=== PATIENT | male | born 2000 | race African-American/Black ===

== ENCOUNTER 2020-03-16 04:09 | Inpatient (IN) | payer OTHER, SELFPAY ==
[2020-03-16 04:29] VITALS: BMI 20.7
[2020-03-16] MEDS ORDERED: Dextrose 5% in Water 1,000 ML IV PRN (04:34)
[2020-03-16] MEDS ORDERED: Morphine 2 MG/ML VIAL SLOW IVP PRN (04:34)
[2020-03-16] MEDS ORDERED: Morphine 4 MG/ML VIAL SLOW IVP PRN (04:34)
[2020-03-16] MEDS ORDERED: Dextrose 50% Abboject 50 ML SYRINGE SLOW IVP PRN (04:34)
[2020-03-16] MEDS: Potassium Chloride 20 MEQ in Premix Bag 1 BAG IVPB SCH ×2 (05:23→08:23)
[2020-03-16] MEDS: Sodium Chloride 0.9% 1,000 ML IV SCH ×2 (05:23→14:52)
[2020-03-16] MEDS ORDERED: FLU VACC QS2020-21(6MOS UP)/PF 60 MCG/0.5 ML SYRINGE IM ONE (06:45)
[2020-03-16] MEDS: Clindamycin/D5W 600 MG in Premix Bag 1 BAG IVPB SCH ×3 (07:27→21:45)
[2020-03-16] MEDS: Dexamethasone 4 mg/ml Vial SLOW IVP SCH ×3 (07:28→21:46)
[2020-03-16] MEDS: Ketorolac Tromethamine 30 MG/ML VIAL IVP SCH ×3 (07:28→17:59)
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
[2020-03-16] MEDS: Famotidine/PF 20 mg/2ml Vial SLOW IVP SCH ×2 (10:35→20:17)
[2020-03-16] MEDS: Chlorhexidine Gluconate 15 ML UDCUP SSP SCH ×3 (10:35→20:17)
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
[2020-03-17] MEDS: Sodium Chloride 0.9% 1,000 ML IV SCH ×2 (00:55→14:36)
[2020-03-17 04:47] LABS: #Lymphocytes 0.9 thou/uL (1.20-3.40); #Monocytes 0.3 thou/uL (0.11-0.59); #Neutrophils 3.8 thou/uL (1.40-6.50); %Basophils 0.4 % (0.0-1.0); %Eosinophils 0.1 % (0.0-10.0); %Lymphocytes 18.3 % (28.0-48.0); %Monocytes 5.5 % (0.0-4.0); %Neutrophils 75.7 % (31.0-61.0); Hemoglobin 13.4 g/dL (14.0-18.0); Mean Corpuscular HGB CONC 34.3 g/dL (32.0-36.0); Mean Corpuscular Hemoglobin 31.2 pg (25.0-35.0); Platelet Count 202 thou/uL (130-400); Red Blood Cell (RBC) Count 4.28 mill/uL (4.00-5.20)
[2020-03-17 05:13] LABS: Anion Gap 14 mmol/L (10-20); BUN (Urea Nitrogen) 16 mg/dL (8.9-20.6); Calc. Creatinine Clearance 128 mL/min (70-130); Calcium 8.6 mg/dL (7.8-10.44); Carbon Dioxide 23 mmol/L (22-29); Chloride 105 mmol/L (98-107); Estimated GFR-MDRD Greater than 90; Glucose 119 mg/dL (70-105); Phosphorus 3.9 mg/dL (2.3-4.7); Potassium 4.4 mmol/L (3.5-5.1); Sodium 138 mmol/L (136-145)
[2020-03-17] MEDS: Clindamycin/D5W 600 MG in Premix Bag 1 BAG IVPB SCH ×3 (05:28→21:04)
[2020-03-17] MEDS ORDERED: Chlorhexidine Gluconate 15 ML UDCUP SSP ONE (07:39)
[2020-03-17] MEDS ORDERED: Lidocaine 1% w/Epinephrine 1:100K 20 ML VIAL ONE (07:39)
[2020-03-17] MEDS ORDERED: Fentanyl 250 MCG/5 ML VIAL ONE (07:49)
[2020-03-17] MEDS ORDERED: HYDROmorphone 2 MG/ML VIAL ONE (07:49)
[2020-03-17] MEDS ORDERED: AFRIN NASAL MIST 15 ML BOT ONE ×2 (07:49→07:55)
[2020-03-17] MEDS ORDERED: Sodium Chloride 0.9% 10 ML ONE (09:17)
[2020-03-17] MEDS ORDERED: Ketorolac Tromethamine 30 MG/ML VIAL ONE (11:40)
[2020-03-17] MEDS ORDERED: PROPOFOL 200 MG/20 ML VIAL ONE (11:40)
[2020-03-17] MEDS ORDERED: Succinylcholine 200 MG/10 ml SYRINGE FS ONE (11:40)
[2020-03-17] MEDS ORDERED: Ondansetron PF 4 MG/2 ML Vial ONE (11:40)
[2020-03-17] MEDS ORDERED: Glycopyrrolate 0.2 MG/ML 5 ML SYRINGE ONE (11:40)
[2020-03-17] MEDS ORDERED: Lidocaine 1% PF 5 ML VIAL ONE (11:40)
[2020-03-17] MEDS ORDERED: Dexamethasone 20 MG/5 ML VIAL ONE (11:40)
[2020-03-17] MEDS ORDERED: Rocuronium Bromide 10 MG/ML (10ML VIAL) ONE (11:40)
[2020-03-17] MEDS ORDERED: Bacitracin Zinc Ointment 30 gm TUBE ONE (12:16)
[2020-03-17] MEDS ORDERED: Gentamicin Ophth Soln 0.3% 5 ml Bottle ONE (12:34)
[2020-03-17] MEDS ORDERED: Erythromycin Base 0.5% Oint 1 GM TUBE EA EYE SCH (12:45)
[2020-03-17] MEDS ORDERED: Meperidine HCl/PF 25 MG/ML VIAL SLOW IVP PRN (13:10)
[2020-03-17] MEDS ORDERED: Morphine Sulfate 2 MG/ML SYRINGE SLOW IVP PRN (13:10)
[2020-03-17] MEDS ORDERED: HYDROmorphone 2 MG/ML VIAL SLOW IVP PRN (13:10)
[2020-03-17] MEDS ORDERED: Promethazine HCl 25 MG/ML VIAL IM PRN (13:10)
[2020-03-17] MEDS ORDERED: PACU-Morphine 4MG/ML VIAL SLOW IVP PRN (13:10)
[2020-03-17] MEDS ORDERED: Ondansetron HCl/PF 4 MG/2 ML Vial IVP PRN (13:10)
[2020-03-17] MEDS ORDERED: Promethazine HCl 25 MG/ML VIAL SLOW IVP PRN (13:10)
[2020-03-17] MEDS ORDERED: Ketorolac Tromethamine 30 MG/ML VIAL IVP PRN (13:10)
[2020-03-17] MEDS ORDERED: Bacitracin 1 PK TOP SCH (14:30)
[2020-03-17] MEDS: Famotidine/PF 20 mg/2ml Vial SLOW IVP SCH ×2 (14:37→20:29)
[2020-03-17] MEDS: Chlorhexidine Gluconate 15 ML UDCUP SSP SCH ×2 (14:38→20:29)
[2020-03-17] MEDS: Ondansetron PF 4 MG/2 ML Vial IVP PRN (18:42)
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
[2020-03-17] MEDS: Bacitracin 1 PK TOP SCH (20:28)
[2020-03-17] MEDS: Erythromycin Base 0.5% Oint 1 GM TUBE EA EYE SCH (21:04)
[2020-03-17] MEDS ORDERED: Acetaminophen/Codeine Oral Solution 120 mg/12 mg per 5 ml PO PRN (22:56)
[2020-03-17] MEDS ORDERED: Morphine 2 MG/ML VIAL SLOW IVP PRN (22:59)
[2020-03-17] MEDS: Acetaminophen 650 MG/20.3 ML UDCUP PO SCH (23:46)
[2020-03-18] MEDS: Sodium Chloride 0.9% 1,000 ML IV SCH ×4 (00:01→18:13)
[2020-03-18] MEDS: Acetaminophen 650 MG/20.3 ML UDCUP PO SCH ×3 (05:25→18:13)
[2020-03-18] MEDS: Clindamycin/D5W 600 MG in Premix Bag 1 BAG IVPB SCH ×3 (05:25→21:43)
[2020-03-18] MEDS: Ibuprofen 100 MG/5 ML UDCUP PO SCH ×3 (05:26→21:44)
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
[2020-03-18 05:35] LABS: #Lymphocytes 1.6 thou/uL (1.20-3.40); #Monocytes 0.7 thou/uL (0.11-0.59); %Lymphocytes 19.2 % (28.0-48.0); %Neutrophils 72.7 % (31.0-61.0); Hemoglobin 11.4 g/dL (14.0-18.0); Mean Corpuscular HGB CONC 33.9 g/dL (32.0-36.0); Mean Corpuscular Hemoglobin 31.2 pg (25.0-35.0); Mean Corpuscular Volume 91.9 fL (78.0-98.0); Mean Platelet Volume 7.6 fL (7.4-10.4); Platelet Count 159 thou/uL (130-400); RBC Distribution Width 11.9 % (11.5-14.5); Red Blood Cell (RBC) Count 3.65 mill/uL (4.00-5.20); White Blood Cell (WBC) Count 8.2 thou/uL (4.8-10.8)
[2020-03-18] MEDS ORDERED: Ibuprofen 600 MG TAB PO SCH (06:00)
[2020-03-18 06:05] LABS: Anion Gap 10 mmol/L (10-20); BUN (Urea Nitrogen) 18 mg/dL (8.9-20.6); Calc. Creatinine Clearance 143 mL/min (70-130); Calcium 8.1 mg/dL (7.8-10.44); Carbon Dioxide 26 mmol/L (22-29); Chloride 106 mmol/L (98-107); Estimated GFR-MDRD Greater than 90; Glucose 100 mg/dL (70-105); Phosphorus 2.3 mg/dL (2.3-4.7); Potassium 3.8 mmol/L (3.5-5.1); Sodium 138 mmol/L (136-145)
[2020-03-18] MEDS: Ondansetron PF 4 MG/2 ML Vial IVP PRN (06:06)
[2020-03-18] MEDS: Bacitracin 1 PK TOP SCH ×2 (08:45→20:21)
[2020-03-18] MEDS: Chlorhexidine Gluconate 15 ML UDCUP SSP SCH ×2 (08:45→20:21)
[2020-03-18] MEDS: Famotidine/PF 20 mg/2ml Vial SLOW IVP SCH ×2 (08:46→20:22)
[2020-03-18] MEDS: Erythromycin Base 0.5% Oint 1 GM TUBE EA EYE SCH ×2 (08:46→20:30)
[2020-03-18] MEDS ORDERED: Sodium Chloride 0.65% Nasal 44 ML BOT EA NARE PRN (19:20)
[2020-03-18] MEDS: Sodium Chloride 0.65% Nasal 44 ML BOT EA NARE SCH (20:22)
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
[2020-03-19] MEDS: Clindamycin/D5W 600 MG in Premix Bag 1 BAG IVPB SCH (05:34)
[2020-03-19] MEDS: Acetaminophen 650 MG/20.3 ML UDCUP PO SCH ×3 (05:34→12:20)
[2020-03-19] MEDS: Ibuprofen 100 MG/5 ML UDCUP PO SCH (05:35)
[2020-03-19 08:46] VITALS: BP 139/82; TEMP 97.7
[2020-03-19] MEDS: Bacitracin 1 PK TOP SCH (09:18)
[2020-03-19] MEDS: Erythromycin Base 0.5% Oint 1 GM TUBE EA EYE SCH (09:18)
[2020-03-19] MEDS: Chlorhexidine Gluconate 15 ML UDCUP SSP SCH (09:18)
[2020-03-19] MEDS: Sodium Chloride 0.65% Nasal 44 ML BOT EA NARE SCH (09:19)
[2020-03-19] MEDS ORDERED: Clindamycin 150 MG CAP PO SCH (14:00)
== END 2020-03-19 14:35 | disposition home or self-care (01) | DRG 140 ==
LOC: 2SE 04:26 → SURG A 03-17 20:00
PROVIDERS: ADMIT Surgery; ATTEND Surgery
PROC: 0NSV04Z Reposition Left Mandible with Internal Fixation Device, Open Approach (ICD-10-PCS; principal; 2020-03-17)
PROC: 0NSN04Z Reposition Left Zygomatic Bone with Internal Fixation Device, Open Approach (ICD-10-PCS; 2020-03-17)
PROC: 0NBV0ZZ Excision of Left Mandible, Open Approach (ICD-10-PCS; 2020-03-17)
PROC: 0NSR04Z Reposition Maxilla with Internal Fixation Device, Open Approach (ICD-10-PCS; 2020-03-17)
PROC: 0CDWXZ0 Extraction of Upper Tooth, Single, External Approach (ICD-10-PCS; 2020-03-17)
PROC: 0CQ7XZZ Repair Tongue, External Approach (ICD-10-PCS; 2020-03-17)
PROC: 0CQ1XZZ Repair Lower Lip, External Approach (ICD-10-PCS; 2020-03-17)
DX: S02.622B Fracture of subcondylar process of left mandible, initial encounter for open fracture (principal); U07.1 COVID-19; S02.85XA Fracture of orbit, unspecified, initial encounter for closed fracture; S06.0X9A Concussion with loss of consciousness of unspecified duration, initial encounter; S02.40FB Zygomatic fracture, left side, initial encounter for open fracture; S01.511A Laceration without foreign body of lip, initial encounter; S02.40DB Maxillary fracture, left side, initial encounter for open fracture; E87.6 Hypokalemia; S02.5XXB Fracture of tooth (traumatic), initial encounter for open fracture; S01.512A Laceration without foreign body of oral cavity, initial encounter; Y08.89XA Assault by other specified means, initial encounter
CPT/HCPCS: 36415; 70486; 80048; 83735; 84100; 85025; C1713; J1100; J1170; J1885; J2270; J2405; J2704; J3010; J3480; J3490; S0028